=== PATIENT | male | born 1970 | race Two or more races ===

== ENCOUNTER 2021-01-11 21:44 | Inpatient (IN) | payer OTHER, MEDICAID ==
[~2021-01-11] VITALS: Ht 180.3 cm; Wt 94.8 kg
[~2021-01-11 21:44] MED LIST: ASPI-1497; HYDR-4001; LISI10TA26; METF-416; NITR0.4T; OMEP20CA14; ONDA4TAB50; PARO-41; SIMV10TA97; VARD20TA31; VITAMIN D
[2021-01-11] MEDS ORDERED: VANCOMYCIN 1 G PREMIX 200 ML IV ONE (22:15)
[2021-01-11] MEDS ORDERED: SODIUM CHLORIDE 0.9% 1000ML BAG (SEPSIS BOLUS) IV ONE (22:15)
[2021-01-11] MEDS ORDERED: ACETAMINOPHEN 325MG TABLET PO STA (22:15)
[2021-01-11] MEDS ORDERED: PIPERACILLIN/TAZ 3.375G PREMIX 50 ML IV ONE (22:15)
[2021-01-11 22:42] LABS: HEMATOCRIT. 42.8 % (42.0-52.0); HEMOGLOBIN. 15.3 g/dL (14.0-18.0); MEAN CORPUSCULAR HEMOGLOBIN 28.9 pg (28.0-32.0); MEAN CORPUSCULAR VOLUME 81.1 fL (80.0-94.0); MEAN PLATELET VOLUME 7.5 fl (7.4-10.4); PLATELET 329 x1000/uL (130-400); RED BLOOD CELL COUNT 5.27 mill/uL (4.7-6.1); RED CELL DISTRIBUTION WIDTH 13.5 % (11.6-14.6)
[2021-01-11 22:45] LABS: CHLORIDE 99 mEq/L (98-107)
[2021-01-11 22:47] LABS: CLARITY URINE CLEAR (CLEAR); COLOR URINE DARK YELLOW (YELLOW); KETONES URINE 1+ (NEGATIVE); LEUKOCYTE ESTERASE URINE TRACE (NEGATIVE); NITRITE URINE NEGATIVE (NEGATIVE); OCCULT BLOOD URINE NEGATIVE (NEGATIVE); PH URINE 8.5 (4.5-8.0); PROTEIN URINE 1+ (NEGATIVE); SPECIFIC GRAVITY URINE 1.026 (1.005-1.030)
[2021-01-11 22:48] LABS: INR 1.1; PROTHROMBIN TIME 11.4 sec (9.6-11.0)
[2021-01-11 22:49] LABS: ETHANOL BLOOD < 10 mg/dL
[2021-01-11 23:06] LABS: METHADONE URINE SCREEN NEGATIVE (NEGATIVE); OPIATES URINE SCREEN NEGATIVE (NEGATIVE)
[2021-01-11 23:07] LABS: *AMPHETAMINES SCREEN URINE NEGATIVE (NEGATIVE); *BARBITURATES SCREEN URINE NEGATIVE (NEGATIVE); *BENZODIAZEPINES SCREEN URINE NEGATIVE (NEGATIVE); *COCAINE SCREEN URINE NEGATIVE (NEGATIVE); CANNABINOID URINE SCREEN NEGATIVE (NEGATIVE); PHENCYCLIDINE URINE SCREEN NEGATIVE (NEGATIVE)
[2021-01-11 23:16] LABS: PLATELET ESTIMATE NORMAL
[2021-01-12] MEDS ORDERED: ACETAMINOPHEN 500MG TABLET PO ONE (05:15)
[2021-01-12] MEDS ORDERED: ONDANSETRON HCL 4MG/2ML INJ IV PRN (07:45)
[2021-01-12] MEDS ORDERED: NITROGLYCERIN 0.4MG TABLET SL SL PRN (07:45)
[2021-01-12] MEDS ORDERED: ACETAMINOPHEN 325MG TABLET PO PRN ×2 (07:45)
[2021-01-12] MEDS ORDERED: DOCUSATE SODIUM 100MG CAPSULE PO PRN (07:45)
[2021-01-12] MEDS ORDERED: KETOROLAC 15MG/ML VIAL IV PRN (07:45)
[2021-01-12] MEDS ORDERED: GUAIFENESIN 200MG/10ML SUGAR FREE UDC PO PRN (07:45)
[2021-01-12] MEDS ORDERED: MAGNESIUM/ALUMINUM HYDROXIDE/SIMETHICONE 30ML UDC PO PRN (07:45)
[2021-01-12] MEDS ORDERED: IPRATROPIUM/ALBUTEROL 0.5-3(2.5)MG/3ML NEB NEB PRN (07:45)
[2021-01-12] MEDS ORDERED: CLONIDINE 0.1MG TABLET PO PRN (07:45)
[2021-01-12] MEDS ORDERED: PIPERACILLIN/TAZ 3.375G PREMIX 50 ML IV SCH (08:00)
[2021-01-12 08:51] LABS: FOLIC ACID (FOLATE) SERUM >20 ng/mL ng/mL (>5.38)
[2021-01-12 09:03] LABS: VITAMIN B12 SERUM 1107 pg/mL (211-911)
[2021-01-12 09:30] VITALS: BP 137/77
[2021-01-12 12:00] VITALS: BP 111/63
[2021-01-12] MEDS: FAMOTIDINE 20MG TABLET PO SCH ×2 (13:14→20:23)
[2021-01-12] MEDS: ENOXAPARIN 40MG/0.4ML SYR SUBCUT SCH (13:16)
[2021-01-12 16:00] VITALS: BP 106/60
[2021-01-12] MEDS: SODIUM CHLORIDE 0.9% 1,000 ML IV SCH ×2 (18:10→23:11)
[2021-01-12 20:00] VITALS: BP 100/59
[2021-01-12] MEDS ORDERED: DEXTROSE 50% WATER 50ML SYRINGE IV PRN (20:30)
[2021-01-12] MEDS ORDERED: ZOLPIDEM TARTRATE 5MG TABLET PO PRN (21:00)
[2021-01-12] MEDS: INSULIN LISPRO 100 UNITS/ML SUBCUT SCH (21:00)
[2021-01-12] MEDS: BLOOD SUGAR DIAGNOSTIC STRIP TEST SCH (21:00)
[2021-01-12] MEDS: PIPERACILLIN/TAZOBACTAM 3.375G in DEXT 5% WATER 50ML IV SCH (23:09)
[2021-01-13] VITALS: BP 106/61
[2021-01-13 04:00] VITALS: BP 112/63
[2021-01-13] MEDS: INSULIN LISPRO 100 UNITS/ML SUBCUT SCH ×4 (05:48→20:32)
[2021-01-13] MEDS: PIPERACILLIN/TAZOBACTAM 3.375G in DEXT 5% WATER 50ML IV SCH ×3 (05:48→22:12)
[2021-01-13] MEDS: BLOOD SUGAR DIAGNOSTIC STRIP TEST SCH ×4 (05:48→20:33)
[2021-01-13] MEDS: SODIUM CHLORIDE 0.9% 1,000 ML IV SCH ×2 (05:50→14:16)
[2021-01-13 08:23] LABS: BASOPHILS % 0.2 % (0.0-2.0); EOSINOPHILS % 0.4 % (0.0-5.0); HEMATOCRIT. 38.6 % (42.0-52.0); HEMOGLOBIN. 13.5 g/dL (14.0-18.0); LYMPHOCYTES % 19.6 % (20.0-50.0); MEAN CORPUSCULAR HEMOGLOBIN 28.9 pg (28.0-32.0); MEAN CORPUSCULAR VOLUME 82.4 fL (80.0-94.0); MEAN PLATELET VOLUME 7.7 fl (7.4-10.4); MONOCYTES % 6.9 % (2.0-8.0); NEUTROPHILS % 72.9 % (40.0-76.0); PLATELET 307 x1000/uL (130-400); RED BLOOD CELL COUNT 4.68 mill/uL (4.7-6.1); RED CELL DISTRIBUTION WIDTH 13.1 % (11.6-14.6)
[2021-01-13 08:35] LABS: CHLORIDE 108 mEq/L (98-107)
[2021-01-13 08:45] LABS: PHOSPHORUS 2.9 mg/dL (2.5-4.9)
[2021-01-13] MEDS: ENOXAPARIN 40MG/0.4ML SYR SUBCUT SCH (08:54)
[2021-01-13] MEDS: FAMOTIDINE 20MG TABLET PO SCH ×2 (08:54→20:30)
[2021-01-13 20:00] VITALS: BP 103/66
[2021-01-14] VITALS: BP 97/57
[2021-01-14] MEDS: SODIUM CHLORIDE 0.9% 1,000 ML IV SCH ×2 (00:22→08:30)
[2021-01-14 04:00] VITALS: BP 103/64
[2021-01-14] MEDS: PIPERACILLIN/TAZOBACTAM 3.375G in DEXT 5% WATER 50ML IV SCH ×2 (05:16→17:42)
[2021-01-14] MEDS: INSULIN LISPRO 100 UNITS/ML SUBCUT SCH ×3 (06:19→17:40)
[2021-01-14] MEDS: BLOOD SUGAR DIAGNOSTIC STRIP TEST SCH ×3 (06:19→17:26)
[2021-01-14 08:00] VITALS: BP 114/77
[2021-01-14] MEDS: ENOXAPARIN 40MG/0.4ML SYR SUBCUT SCH (08:30)
[2021-01-14] MEDS: FAMOTIDINE 20MG TABLET PO SCH (08:30)
[2021-01-14 12:00] VITALS: BP 111/76
[2021-01-14 16:00] VITALS: BP 112/63
[2021-01-14 19:28] VITALS: BP 112/76
== END 2021-01-14 20:55 | disposition short-term general hospital (02) | DRG 872 ==
LOC: ER 21:44 → 8WST 01-12 06:31 → EDBEDREQTM 01-12 06:36 → EDBEDREQ 01-12 06:36 → EDBEDREQDT 01-12 06:36 → EDBEDREQSVC 01-12 06:36 → ENRESERV 01-12 07:54
PROVIDERS: ADMIT Internal Medicine; ATTEND Internal Medicine
DX: A41.9 Sepsis, unspecified organism (principal); E87.1 Hypo-osmolality and hyponatremia; E11.9 Type 2 diabetes mellitus without complications; Z20.822 Contact with and (suspected) exposure to COVID-19; I10 Essential (primary) hypertension
CPT/HCPCS: 36415; 71045; 74176; 80053; 80061; 80305; 80320; 81003; 82607; 82746; 82962; 83036; 83540; 83550; 83605; 83615; 83735; 83880; 84100; 84145; 84484; 85025; 87426; 93970; 99291; J1650; J1815; J2543; J3370; J7030; J7060; G0480